=== PATIENT | male | born 1955 | race Caucasian/White ===

== ENCOUNTER 2021-03-01 08:07 | Emergency (ER) | payer MEDICARE ==
[~2021-03-01] VITALS: Ht 180.3 cm; Wt 81.6 kg
[2021-03-01 08:41] LABS: BASO % 0.3 % (0.0-1.0); EOS # 0.1 10*3/uL (0.0-0.4); LYMPH # 0.8 10*3/uL (1.3-4.4); LYMPH % 11.1 % (27.0-41.0); MEAN CORPUSCULAR HGB 31.8 pg (27.0-31.0); MEAN CORPUSCULAR HGB CONC 33.5 g/dl (33.0-37.0); MEAN PLATELET VOLUME 10.4 fl (9.6-12.3); MONO # 0.4 10*3/uL (0.1-1.0); MONO % 5.7 % (3.0-9.0); NEUT # 5.8 10*3/uL (2.3-7.9); NEUT % 81.6 % (47.0-73.0); PLATELET COUNT AUTOMATED 173 10*3/uL (130-400); RED BLOOD COUNT 4.21 10*6/uL (4.50-5.90); RED CELL DISTRI WIDTH 12.4 % (0-14.5); WHITE BLOOD COUNT 7.1 10*3/uL (4.8-10.8)
[2021-03-01 08:59] LABS: ALBUMIN 3.3 gm/dl (3.1-4.5); ALKALINE PHOSPHATASE 66 U/L (45-117); BUN 23 mg/dl (7-24); CHLORIDE 109 mmol/L (98-107); CREATININE 0.89 mg/dL (0.70-1.30); POTASSIUM 4.2 mmol/L (3.5-5.1); SGPT/ALT 30 U/L (12-78); SODIUM 141 mmol/L (136-145); TOTAL PROTEIN 6.3 gm/dL (6.4-8.2)
[2021-03-01 09:17] LABS: SGOT/AST 22 IU/L (3-35)
[2021-03-01 09:30] LABS: ETHYL ALCOHOL < 3.0 mg/dl (<3)
[2021-03-01 09:35] LABS: BILIRUBIN Negative (Negative); BLOOD Negative (Negative); CLARITY Clear (Clear); COLOR Yellow (Yellow); GLUCOSE Trace (Negative); KETONE Negative (Negative); LEUKO ESTERASE Negative (Negative); NITRITE Negative (Negative); UROBILINOGEN 0.2 E.U./dl (0.0-1.0)
[2021-03-01 09:39] VITALS: BP 126/67
[2021-03-01 09:44] LABS: URINE BARBITURATES < 200 (200ng/ml); URINE BENZODIAZEPINES > 200 (200ng/ml); URINE METHADONE < 300 (300ng/ml); URINE OPIATES > 300 (300ng/ml)
[2021-03-01 09:47] LABS: EPITHELIAL CELLS 0-2; MUCOUS 1+
[2021-03-01 09:58] LABS: URINE AMPHETAMINES < 1000 (1000ng/ml); URINE CANNABINOIDS (THC) > 50 (50ng/ml); URINE COCAINE < 300 (300ng/ml)
[2021-03-01 10:00] LABS: URINE PHENCYCLIDINE < 25 (25ng/ml)
== END 2021-03-01 10:22 | disposition home or self-care (01) ==
LOC: ED 08:07
PROVIDERS: Student in an Organized Health Care Education/Training Program
DX: T40.601A Poisoning by unspecified narcotics, accidental (unintentional), initial encounter (principal); R40.4 Transient alteration of awareness; Y92.89 Other specified places as the place of occurrence of the external cause